=== PATIENT | female | born 1990 | race Caucasian/White ===

== ENCOUNTER 2016-04-16 17:51 | Emergency (ER) | payer OTHER, SELFPAY ==
[~2016-04-16 17:51] MED LIST: ACET50TA PO; ANUS2.5C2 TOP; DOCU10CA PO; IBUP60TA PO; MOM30SS PO
[2016-04-16] MEDS ORDERED: IBUPROFEN 600 MG TAB As Ordered ONE (18:24)
[2016-04-16] MEDS ORDERED: ANEXSIA, NORCO 7.5MG/325MG TABLET(HYDROCODONE/APAP) As Ordered ONE (18:24)
--- NOTE | 2016-04-16 18:36 | EDDOCDS ---
Nurse's Notes [facility] Name: Mahin Zuluaga Age: 25 yrs Sex: Female : 1990 Arrival Date: 04/16/2016 Time: 17:51 Bed I8 / 16 Private MD: [facility] - Adults Diagnosis: Other chest pain-chest wall pain Presentation: 04/16 17:55 Presenting complaint: Patient states: L flank pain since last night, worse with moving rs3 left arm, deep breathing. has not taken any meds. No known injury. picks up her 2 year old son constantly on left side. Acute neurological deficits are not present. Mechanism of Injury: No Mechanism of Injury. Adult Sepsis Screening: The patient does not have new or worsening altered mentation. Patient's respiratory rate is less than 22. Systolic blood pressure is greater than 100. Patient has a qSOFA score of 0- Negative Sepsis Screen. Suicide/Homicide risk assessment- the patient denies having any suicidal and/or homicidal ideations and does not present with any other emotional, behavioral or mental health complaints. 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 Transition of care: patient was not received from another setting of care. 17:55 Acuity: RADHA Level 4 rs3 17:55 Method Of Arrival: Walkin/Carried/Asstd rs3 Triage Assessment: 17:58 General: Appears in no apparent distress. Pain: Location: left lateral posterior chest. rs3 HIV screening NA for this visit Offered previously. Musculoskeletal: Reports Pain is 8 out of 10 on a pain scale. 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 none - PMHx: none; - PSHx: oral surgery; Cholecystectomy; - Social history: Smoking status: Patient uses tobacco products, heavy tobacco smoker. No barriers to communication noted, The patient speaks fluent Lithuanian. - Family history: Not pertinent. - : The pt / caregiver states he / she is not on anticoagulants. Home medication list is obtained from the patient. - Exposure Risk Screening:: None identified. Screenin:31 Screening information is obtained from the patient. Fall risk: No risks identified. ttb Assistance ADL's: requires no assistance with activities of daily living. Abuse/DV Screen: The patient / caregiver reports he/she is: not in a situation that causes fear, pain or injury. Nutritional screening: No deficits noted. Advance Directives: Currently, there is no health care proxy. home support is adequate. Assessment: 18:31 General: Appears in no apparent distress, uncomfortable, well nourished, well groomed, ttb Behavior is appropriate for age, cooperative, pleasant. Pain: Location: left ribs. Neurological: Level of Consciousness is awake, alert. Cardiovascular: Chest pain is denied. Respiratory: No deficits noted. Airway is patent Respiratory effort is even, unlabored. Respiratory: Denies cough, shortness of breath. GI: Denies nausea, vomiting, pain. Derm: Skin is normal. Musculoskeletal: Range of motion intact in all extremities. Injury Description: No known injury. Vital Signs: 17:53 BP 139 / 73; Pulse 92; Resp 18; Temp 98.2(O); Pulse Ox 100% on R/A; Weight 77.11 kg; [facility] Height 5 ft. 3 in. (160.02 cm); Pain 8/10; 17:53 Body Mass Index 30.11 (77.11 kg, 160.02 cm) [facility] Vitals: 17:53 Log In Time: April 16, 2016 at 17:51. [facility] ED Course: 17:52 Patient visited by Irving Brantley. [facility] 17:52 [facility] is Private Physician. [facility] 17:52 Patient moved to Waiting [facility] 17:53 Patient moved to Pre RCE dem1 17:58 Triage Initiated rs3 18:08 Patient moved to I8 / 16 [facility] 18:09 Jaime Foster MD is Attending Physician. ml 18:09 Patient visited by Jaime Foster MD. ml 18:20 [facility] is Referral Physician. ml 18:31 The patient / caregiver is instructed regarding the plan of care and ED course. ttb Accompanied by Friend, Patient has correct armband on for positive identification. 18:31 No IV's were initiated during this patient's visit. No procedures done that require ttb assistance. Administered Medications: 18:25 Drug: Ibuprofen 600 mg [ibuprofen 600 mg tablet (1 tabs)] Route: PO; ttb 18:25 Drug: HYDROcodone-acetaminophen 1 tabs [hydrocodone 5 mg-acetaminophen 325 mg tablet (1 ttb tabs)] Route: PO; 18:35 Follow up: Response: Confirmed pt not driving. ttb Order Results: There are currently no results for this order. Outcome: 18:20 Discharge ordered by Provider. 18:31 Discharge Assessment: Patient awake, alert and oriented x 3. No cognitive and/or ttb functional deficits noted. Patient verbalized understanding of disposition instructions. Patient awake and alert. patient administered narcotics - yes. Pt provided with safe discharge. The following High Risk Discharge criteria are identified: None. Discharged to home ambulatory, with friend. Condition: good Condition: stable Condition: improved. Discharge instructions given to patient, friend, Instructed on discharge instructions, follow up and referral plans. medication usage, no driving heavy equipment, Rest, Ice, Compression and Elevation. no drinking with medication, Demonstrated understanding of instructions, medications, no d/d with narcs, RICE Pt was receptive of discharge instructions/ teaching. Prescriptions given X 2, Work note provided to patient. No special radiology studies were completed. Property :Personal belongings accompany Pt. 18:35 Patient left the ED. ttb Signatures: Jaime Foster MD MD ml Kim-Ashcraft, Connie,RN RN ck1 Ana Laura ClemensRN RN rs3 Irving Brantley [facility] Yenny Tang RN RN ttb [facility]
--- NOTE | 2016-04-16 18:36 | EDDOCDS ---
Physician Documentation [facility] Name: Mahin Zuluaga Age: 25 yrs Sex: Female : 1990 Arrival Date: 04/16/2016 Time: 17:51 Bed I8 / 16 Private MD: [facility] - Adults Disposition: 04/16/16 18:20 Discharged to Home/Self Care. Impression: Other chest pain - chest wall pain. - Condition is Stable. - Discharge Instructions: Nonspecific Chest Pain, Chest Wall Pain. - Prescriptions for Ibuprofen 600 mg Oral Tablet - take 1 tablet by ORAL route every 8 hours As needed take with food; 20 tablet. [place] 5- 325 mg Oral Tablet - take 1 tablet by ORAL route every 6 hours As needed MDD: 4 tabs; 12 tablet. - Work Release Form - 3 day, Medication Reconciliation, Local Pharmacy Hours form. - Follow up: [facility] - Adults; When: Call to arrange an appointment. - Problem is new. - Symptoms are unchanged. - Notes: return if worsening symptoms Historical: - Allergies: no known allergies; - Home Meds: 1. none - PMHx: none; - PSHx: oral surgery; Cholecystectomy; - Social history: Smoking status: Patient uses tobacco products, heavy tobacco smoker. No barriers to communication noted, The patient speaks fluent Turkish. - Family history: Not pertinent. - : The pt / caregiver states he / she is not on anticoagulants. Home medication list is obtained from the patient. - Exposure Risk Screening:: None identified. 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 3 in. (160.02 cm); Pain 8/10; 17:53 Body Mass Index 30.11 (77.11 kg, 160.02 cm) dem1 MDM: 18:20 Ibuprofen 600 mg PO once ordered. ml 18:20 HYDROcodone-acetaminophen 5 mg-325 mg 1 tabs PO once ordered. ml Administered Medications: 18:25 Drug: Ibuprofen 600 mg [ibuprofen 600 mg tablet (1 tabs)] Route: PO; ttb 18:25 Drug: HYDROcodone-acetaminophen 1 tabs [hydrocodone 5 mg-acetaminophen 325 mg tablet (1 ttb tabs)] Route: PO; 18:35 Follow up: Response: Confirmed pt not driving. ttb Signatures: Jaime Foster MD MD ml Soosairaj, Rosemary, RN RN rs3 Yenny Tang RN RN ttb MTDD
--- NOTE | 2016-04-18 19:36 | EDDOCDS ---
Physician Documentation [facility] Name: Mahin Zuluaga Age: 25 yrs Sex: Female : 1990 Arrival Date: 04/16/2016 Time: 17:51 Bed I8 / 16 Private MD: [facility] - Adults Disposition: 04/16/16 18:20 Discharged to Home/Self Care. Impression: Other chest pain - chest wall pain. - Condition is Stable. - Discharge Instructions: Nonspecific Chest Pain, Chest Wall Pain. - Prescriptions for Ibuprofen 600 mg Oral Tablet - take 1 tablet by ORAL route every 8 hours As needed take with food; 20 tablet. [place] 5- 325 mg Oral Tablet - take 1 tablet by ORAL route every 6 hours As needed MDD: 4 tabs; 12 tablet. - Work Release Form - 3 day, Medication Reconciliation, Local Pharmacy Hours form. - Follow up: [facility] - Adults; When: Call to arrange an appointment. - Problem is new. - Symptoms are unchanged. - Notes: return if worsening symptoms Historical: - Allergies: no known allergies; - Home Meds: 1. none - PMHx: none; - PSHx: oral surgery; Cholecystectomy; - Social history: Smoking status: Patient uses tobacco products, heavy tobacco smoker. No barriers to communication noted, The patient speaks fluent Greenlandic. - Family history: Not pertinent. - : The pt / caregiver states he / she is not on anticoagulants. Home medication list is obtained from the patient. - Exposure Risk Screening:: None identified. 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 3 in. (160.02 cm); Pain 8/10; 17:53 Body Mass Index 30.11 (77.11 kg, 160.02 cm) dem1 MDM: 18:20 Ibuprofen 600 mg PO once ordered. ml 18:20 HYDROcodone-acetaminophen 5 mg-325 mg 1 tabs PO once ordered. ml 18:38 Financial registration complete. [email or web address] 21:27 T-Sheet-- Draft Copy was scanned into Tapulous and attached to record. klr Administered Medications: 18:25 Drug: Ibuprofen 600 mg [ibuprofen 600 mg tablet (1 tabs)] Route: PO; ttb 18:25 Drug: HYDROcodone-acetaminophen 1 tabs [hydrocodone 5 mg-acetaminophen 325 mg tablet (1 ttb tabs)] Route: PO; 18:35 Follow up: Response: Confirmed pt not driving. ttb Signatures: Jaime Foster MD MD ml Soosairaj, Rosemary, RN RN rs3 Yenny Tang RN RN ttb Yolanda Tierney, Reg Reg ks16 Zoey Sanders kljose The chart was reviewed and I authenticate all verbal orders and agree with the evaluation and treatment provided.Attachments: 21:27 T-Sheet-- Draft Copy klr Chart Complete MTDD
--- NOTE | 2016-04-18 19:36 | EDDOCDS ---
Physician Documentation [facility] Name: Mahin Zuluaga Age: 25 yrs Sex: Female : 1990 Arrival Date: 04/16/2016 Time: 17:51 Bed I8 / 16 Private MD: [facility] - Adults Disposition: 04/16/16 18:20 Discharged to Home/Self Care. Impression: Other chest pain - chest wall pain. - Condition is Stable. - Discharge Instructions: Nonspecific Chest Pain, Chest Wall Pain. - Prescriptions for Ibuprofen 600 mg Oral Tablet - take 1 tablet by ORAL route every 8 hours As needed take with food; 20 tablet. [place] 5- 325 mg Oral Tablet - take 1 tablet by ORAL route every 6 hours As needed MDD: 4 tabs; 12 tablet. - Work Release Form - 3 day, Medication Reconciliation, Local Pharmacy Hours form. - Follow up: [facility] - Adults; When: Call to arrange an appointment. - Problem is new. - Symptoms are unchanged. - Notes: return if worsening symptoms Historical: - Allergies: no known allergies; - Home Meds: 1. none - PMHx: none; - PSHx: oral surgery; Cholecystectomy; - Social history: Smoking status: Patient uses tobacco products, heavy tobacco smoker. No barriers to communication noted, The patient speaks fluent Bengali. - Family history: Not pertinent. - : The pt / caregiver states he / she is not on anticoagulants. Home medication list is obtained from the patient. - Exposure Risk Screening:: None identified. 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 3 in. (160.02 cm); Pain 8/10; 17:53 Body Mass Index 30.11 (77.11 kg, 160.02 cm) dem1 MDM: 18:20 Ibuprofen 600 mg PO once ordered. ml 18:20 HYDROcodone-acetaminophen 5 mg-325 mg 1 tabs PO once ordered. ml 18:38 Financial registration complete. [email or web address] 21:27 T-Sheet-- Draft Copy was scanned into [id number] and attached to record. klr Administered Medications: 18:25 Drug: Ibuprofen 600 mg [ibuprofen 600 mg tablet (1 tabs)] Route: PO; ttb 18:25 Drug: HYDROcodone-acetaminophen 1 tabs [hydrocodone 5 mg-acetaminophen 325 mg tablet (1 ttb tabs)] Route: PO; 18:35 Follow up: Response: Confirmed pt not driving. ttb Signatures: Jaime Foster MD MD ml Soosairaj, Rosemary, RN RN rs3 Yenny Tang RN RN ttb Yolanda Tierney, Reg Reg ks16 Zoey Sanders kljose The chart was reviewed and I authenticate all verbal orders and agree with the evaluation and treatment provided.Attachments: 21:27 T-Sheet-- Draft Copy klr Chart Complete MTDD
--- NOTE | 2016-04-18 19:36 | EDDOCDS ---
Nurse's Notes [facility] Name: Mahin Zuluaga Age: 25 yrs Sex: Female : 1990 Arrival Date: 04/16/2016 Time: 17:51 Bed I8 / 16 Private MD: [facility] - Adults Diagnosis: Other chest pain-chest wall pain Presentation: 04/16 17:55 Presenting complaint: Patient states: L flank pain since last night, worse with moving rs3 left arm, deep breathing. has not taken any meds. No known injury. picks up her 2 year old son constantly on left side. Acute neurological deficits are not present. Mechanism of Injury: No Mechanism of Injury. Adult Sepsis Screening: The patient does not have new or worsening altered mentation. Patient's respiratory rate is less than 22. Systolic blood pressure is greater than 100. Patient has a qSOFA score of 0- Negative Sepsis Screen. Suicide/Homicide risk assessment- the patient denies having any suicidal and/or homicidal ideations and does not present with any other emotional, behavioral or mental health complaints. 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 Transition of care: patient was not received from another setting of care. 17:55 Acuity: RADHA Level 4 rs3 17:55 Method Of Arrival: Walkin/Carried/Asstd rs3 Triage Assessment: 17:58 General: Appears in no apparent distress. Pain: Location: left lateral posterior chest. rs3 HIV screening NA for this visit Offered previously. Musculoskeletal: Reports Pain is 8 out of 10 on a pain scale. 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 none - PMHx: none; - PSHx: oral surgery; Cholecystectomy; - Social history: Smoking status: Patient uses tobacco products, heavy tobacco smoker. No barriers to communication noted, The patient speaks fluent Irish. - Family history: Not pertinent. - : The pt / caregiver states he / she is not on anticoagulants. Home medication list is obtained from the patient. - Exposure Risk Screening:: None identified. Screenin:31 Screening information is obtained from the patient. Fall risk: No risks identified. ttb Assistance ADL's: requires no assistance with activities of daily living. Abuse/DV Screen: The patient / caregiver reports he/she is: not in a situation that causes fear, pain or injury. Nutritional screening: No deficits noted. Advance Directives: Currently, there is no health care proxy. home support is adequate. Assessment: 18:31 General: Appears in no apparent distress, uncomfortable, well nourished, well groomed, ttb Behavior is appropriate for age, cooperative, pleasant. Pain: Location: left ribs. Neurological: Level of Consciousness is awake, alert. Cardiovascular: Chest pain is denied. Respiratory: No deficits noted. Airway is patent Respiratory effort is even, unlabored. Respiratory: Denies cough, shortness of breath. GI: Denies nausea, vomiting, pain. Derm: Skin is normal. Musculoskeletal: Range of motion intact in all extremities. Injury Description: No known injury. Vital Signs: 17:53 BP 139 / 73; Pulse 92; Resp 18; Temp 98.2(O); Pulse Ox 100% on R/A; Weight 77.11 kg; [facility] Height 5 ft. 3 in. (160.02 cm); Pain 8/10; 17:53 Body Mass Index 30.11 (77.11 kg, 160.02 cm) [facility] Vitals: 17:53 Log In Time: April 16, 2016 at 17:51. [facility] ED Course: 17:52 Patient visited by Irving Brantley. [facility] 17:52 [facility] is Private Physician. [facility] 17:52 Patient moved to Waiting [facility] 17:53 Patient moved to Pre RCE [facility] 17:58 Triage Initiated rs3 18:08 Patient moved to I8 / 16 [facility] 18:09 Jaime Foster MD is Attending Physician. ml 18:09 Patient visited by Jaime Foster MD. 18:20 [facility] is Referral Physician. 18:31 The patient / caregiver is instructed regarding the plan of care and ED course. ttb Accompanied by Friend, Patient has correct armband on for positive identification. 18:31 No IV's were initiated during this patient's visit. No procedures done that require ttb assistance. 21:27 T-Sheet-- Draft Copy was scanned into Tattva and attached to record. klr Administered Medications: 18:25 Drug: Ibuprofen 600 mg [ibuprofen 600 mg tablet (1 tabs)] Route: PO; ttb 18:25 Drug: HYDROcodone-acetaminophen 1 tabs [hydrocodone 5 mg-acetaminophen 325 mg tablet (1 ttb tabs)] Route: PO; 18:35 Follow up: Response: Confirmed pt not driving. ttb Order Results: There are currently no results for this order. Outcome: 18:20 Discharge ordered by Provider. 18:31 Discharge Assessment: Patient awake, alert and oriented x 3. No cognitive and/or ttb functional deficits noted. Patient verbalized understanding of disposition instructions. Patient awake and alert. patient administered narcotics - yes. Pt provided with safe discharge. The following High Risk Discharge criteria are identified: None. Discharged to home ambulatory, with friend. Condition: good Condition: stable Condition: improved. Discharge instructions given to patient, friend, Instructed on discharge instructions, follow up and referral plans. medication usage, no driving heavy equipment, Rest, Ice, Compression and Elevation. no drinking with medication, Demonstrated understanding of instructions, medications, no d/d with narcs, RICE Pt was receptive of discharge instructions/ teaching. Prescriptions given X 2, Work note provided to patient. No special radiology studies were completed. Property :Personal belongings accompany Pt. 18:35 Patient left the ED. ttb Signatures: Jaime Foster MD MD Margie Powell,RN RN ck1 Ana Laura Clemens RN RN rs3 Irving Brantley Teresa, RN RN ttb Redder, Kathie klr Chart Complete MTDD
== END 2016-04-16 18:35 | disposition home or self-care (01) ==
LOC: M ED 17:51
DX: R07.89 Other chest pain (principal); F17.210 Nicotine dependence, cigarettes, uncomplicated

== ENCOUNTER 2016-07-09 13:17 | Emergency (ER) | payer OTHER ==
[~2016-07-09] VITALS: Ht 160 cm; Wt 77.1 kg
[2016-07-09] MEDS ORDERED: BACT800T5 PO (13:52)
[2016-07-09 13:59] VITALS: BP 121/80
== END 2016-07-09 14:16 | disposition home or self-care (01) ==
LOC: M ED 13:57
DX: R22.31 Localized swelling, mass and lump, right upper limb (principal); F41.9 Anxiety disorder, unspecified

== ENCOUNTER 2016-08-25 13:28 | Emergency (ER) | payer OTHER ==
[~2016-08-25] VITALS: Ht 162.6 cm; Wt 80.7 kg
[~2016-08-25 13:28] MED LIST changes: +BACT800T5 PO
[2016-08-25 13:29] VITALS: BP 137/84
[2016-08-25] MEDS ORDERED: NAPR500T PO (15:00)
--- NOTE | 2016-08-25 15:52 | REP ---
RIGHT WRIST, FOUR VIEWS: There is no evidence of an acute fracture, dislocation or intrinsic bone disease. IMPRESSION: No fracture or dislocation. Signed by Gregory Bardales MD 08/25/2016 05:15 P
[2017-01-05] MEDS ORDERED: ULTR50TA8 PO (12:09)
== END 2016-08-25 15:10 | disposition home or self-care (01) ==
LOC: M ED 14:21
DX: S60.211A Contusion of right wrist, initial encounter (principal); X58.XXXA Exposure to other specified factors, initial encounter; Y92.9 Unspecified place or not applicable; Y93.9 Activity, unspecified; Y99.0 Civilian activity done for income or pay

== ENCOUNTER → 2016-10-14 | Outpatient (CLI) | payer OTHER ==
[~2016-10-14] MED LIST changes: +NAPR500T PO; +ULTR50TA8 PO
[2016-10-14 13:24] LABS: BASO # 0.1 K/mm3 (0.0-0.2); BASO % 0.7 % (0.0-1.0); EOS # 0.2 K/mm3 (0.0-0.50); EOS % 1.1 % (0.0-3.0); LARGE UNSTAINED CELL # 0.2 K/mm3 (0.0-0.4); LARGE UNSTAINED CELL % 1.2 % (0.0-4.0); LYMPH # 2.4 K/mm3 (1.5-6.5); LYMPH % 14.8 % (24.0-44.0); MEAN CORPUSCULAR HEMOGLOBIN 29.9 pg (27.0-33.0); MEAN CORPUSCULAR HGB CONC 33.2 g/dl (32.0-36.5); MONO # 0.9 K/mm3 (0.0-0.8); MONO % 5.2 % (0.0-5.0); NEUTROPHILS # 12.5 K/mm3 (1.8-7.7); NEUTROPHILS % 76.9 % (36.0-66.0); PLATELET COUNT, AUTOMATED 309 k/mm3 (150-450); RED CELL DISTRIBUTION WIDTH 14.1 % (11.5-14.5); WHITE BLOOD COUNT 16.2 K/mm3 (4.0-10.0)
[2016-10-14 14:37] LABS: ALBUMIN 3.9 GM/DL (3.2-5.2); ALBUMIN/GLOBULIN RATIO 1.26 (1.00-1.93); ALKALINE PHOSPHATASE 93 U/L (45-117); ALT/SGPT 20 U/L (12-78); ANION GAP 7 MEQ/L (8-16); AST/SGOT 13 U/L (15-37); BILIRUBIN,TOTAL 0.3 MG/DL (0.2-1.0); BLOOD UREA NITROGEN 8 MG/DL (7-18); CALCIUM LEVEL 9.2 MG/DL (8.5-10.1); CARBON DIOXIDE LEVEL 26 MEQ/L (21-32); CHLORIDE LEVEL 107 MEQ/L (98-107); CREATININE FOR GFR 0.57 MG/DL (0.55-1.02); GLOMERULAR FILTRATION RATE > 60.0 (>60); GLUCOSE, FASTING 94 MG/DL (70-105); MAGNESIUM LEVEL 2.5 MG/DL (1.8-2.4); SODIUM LEVEL 140 MEQ/L (136-145)
== END ==
LOC: M LAB 12:48
PROVIDERS: ATTEND Nurse Practitioner Family
DX: F32.9 Major depressive disorder, single episode, unspecified (principal); E61.1 Iron deficiency; R20.2 Paresthesia of skin; R63.4 Abnormal weight loss

== ENCOUNTER → 2016-10-19 | Outpatient (REF) | payer OTHER ==
[2016-10-19 20:39] LABS: BASO % 0.2 % (0.0-1.0); EOS # 0.2 K/mm3 (0.0-0.50); EOS % 1.6 % (0.0-3.0); LARGE UNSTAINED CELL # 0.2 K/mm3 (0.0-0.4); LARGE UNSTAINED CELL % 2.2 % (0.0-4.0); LYMPH # 1.9 K/mm3 (1.5-6.5); LYMPH % 18.4 % (24.0-44.0); MEAN CORPUSCULAR HEMOGLOBIN 30.2 pg (27.0-33.0); MEAN CORPUSCULAR HGB CONC 33.3 g/dl (32.0-36.5); MEAN CORPUSCULAR VOLUME 90.6 fl (80.0-96.0); MONO # 0.7 K/mm3 (0.0-0.8); NEUTROPHILS # 6.7 K/mm3 (1.8-7.7); NEUTROPHILS % 70.6 % (36.0-66.0); PLATELET COUNT, AUTOMATED 269 k/mm3 (150-450); RED CELL DISTRIBUTION WIDTH 14.5 % (11.5-14.5); WHITE BLOOD COUNT 9.4 K/mm3 (4.0-10.0)
== END ==
LOC: M LAB REF 17:37
PROVIDERS: ATTEND Nurse Practitioner Family
DX: D72.829 Elevated white blood cell count, unspecified (principal)

== ENCOUNTER 2017-03-04 12:49 | Emergency (ER) | payer OTHER ==
[2017-03-04] MEDS: PERCOCET 5MG/325MG TAB PO (13:57)
== END 2017-03-04 14:14 | disposition home or self-care (01) ==
LOC: M ED 12:49
DX: K08.89 Other specified disorders of teeth and supporting structures (principal); F17.210 Nicotine dependence, cigarettes, uncomplicated
CPT/HCPCS: 99283

== ENCOUNTER → 2017-03-28 | Outpatient (REF) | payer OTHER, MEDICAID ==
[2017-03-28 19:21] LABS: BASO # 0.1 10^3/uL (0.0-0.2); BASO % 0.6 % (0.0-1.0); EOS # 0.2 10^3/uL (0.0-0.50); EOS % 2.1 % (0.0-3.0); HEMOGLOBIN 11.9 g/dl (12.0-16.0); IMMATURE GRANULOCYTE % 0.2 % (0-0); LYMPH # 2.2 10^3/uL (1.5-6.5); LYMPH % 26.3 % (24.0-44.0); MEAN CORPUSCULAR HEMOGLOBIN 29.4 pg (27.0-33.0); MEAN CORPUSCULAR HGB CONC 33.1 g/dl (32.0-36.5); MEAN CORPUSCULAR VOLUME 88.9 fl (80.0-96.0); MONO # 0.8 10^3/uL (0.0-0.8); NEUTROPHILS # 5.3 10^3/uL (1.8-7.7); NEUTROPHILS % 61.8 % (36.0-66.0); PLATELET COUNT, AUTOMATED 288 10^3/uL (150-450); RED BLOOD COUNT 4.05 10^6/uL (4.00-5.40); RED CELL DISTRIBUTION WIDTH 14.8 % (11.5-14.5); WHITE BLOOD COUNT 8.5 10^3/uL (4.0-10.0)
[2017-03-28 19:55] LABS: ALBUMIN 4.1 GM/DL (3.2-5.2); ALBUMIN/GLOBULIN RATIO 1.21 (1.00-1.93); ALKALINE PHOSPHATASE 103 U/L (45-117); ALT/SGPT 22 U/L (12-78); ANION GAP 8 MEQ/L (8-16); AST/SGOT 18 U/L (7-37); BILIRUBIN,TOTAL 0.3 MG/DL (0.2-1.0); BLOOD UREA NITROGEN 6 MG/DL (7-18); CALCIUM LEVEL 8.4 MG/DL (8.5-10.1); CARBON DIOXIDE LEVEL 22 MEQ/L (21-32); CHLORIDE LEVEL 108 MEQ/L (98-107); CREATININE FOR GFR 0.57 MG/DL (0.55-1.02); GLOMERULAR FILTRATION RATE > 60.0 (>60); GLUCOSE, FASTING 101 MG/DL (70-100); POTASSIUM SERUM 3.9 MEQ/L (3.5-5.1); SODIUM LEVEL 138 MEQ/L (136-145); TOTAL PROTEIN 7.5 GM/DL (6.4-8.2)
[2017-03-28 20:19] LABS: TOTAL 25(OH) VITAMIN D 11.9 NG/ML (30.0-100.0)
[2017-03-30 14:15] LABS: TISSUE TRANSGLUTAMINASE IgA <2 U/mL (0-3)
== END ==
LOC: M LAB REF 17:34
DX: R10.11 Right upper quadrant pain (principal)

== ENCOUNTER → 2017-03-29 | Outpatient (REF) | payer OTHER, MEDICAID ==
[2017-03-29 19:16] LABS: TOTAL 25(OH) VITAMIN D 13.4 NG/ML (30.0-100.0); VITAMIN B12 LEVEL 528 PG/ML
[2017-03-29 19:18] LABS: ERYTHROCYTE SEDIMENTATION RATE 12 mm/hr (0-20)
[2017-03-29 19:24] LABS: FOLATE 10.1 NG/ML
[2017-03-29 19:33] LABS: RHEUMATOID FACTOR QUANT < 10.0 IU/ML (0-15.0)
[2017-04-01 14:12] LABS: ANTINUCLEAR ANTIBODIES DIRECT Negative (Negative); COPPER PLASMA 111 ug/dL (72-166)
== END ==
LOC: M LABNEURO 14:34
DX: R51 Headache (principal)

== ENCOUNTER → 2017-04-17 | Outpatient (REF) | payer OTHER, MEDICAID ==
[2017-04-17 15:14] LABS: CHLAMYDIA DNA AMPLIFICATION NEGATIVE (NEGATIVE); GC DNA AMPLIFICATION NEGATIVE (NEGATIVE)
== END ==
LOC: M SFHCWAGY 12:01
DX: Z11.3 Encounter for screening for infections with a predominantly sexual mode of transmission (principal); R10.30 Lower abdominal pain, unspecified

== ENCOUNTER → 2017-04-18 | Outpatient (CLI) | payer OTHER | LOC: M WHC 12:47 | DX: N92.6 Irregular menstruation, unspecified (principal); R10.2 Pelvic and perineal pain | CPT/HCPCS: 76830 ==

== ENCOUNTER 2017-08-19 19:39 | Emergency (ER) | payer OTHER ==
[2017-08-19] MEDS ORDERED: NORCO 5/325MG TABLET (BULK FOR ED) PO (21:15)
[2017-08-19] MEDS: OXYCODONE/APAP 5MG/325MG(BULK FOR ED) 1 TABLET PO (21:22)
== END 2017-08-19 21:30 | disposition home or self-care (01) ==
LOC: M ED 19:39
DX: S63.501A Unspecified sprain of right wrist, initial encounter (principal); S60.221A Contusion of right hand, initial encounter; W19.XXXA Unspecified fall, initial encounter; Y92.099 Unspecified place in other non-institutional residence as the place of occurrence of the external cause; Y93.9 Activity, unspecified; Y99.9 Unspecified external cause status; F41.9 Anxiety disorder, unspecified; D58.0 Hereditary spherocytosis; Z72.0 Tobacco use
CPT/HCPCS: 73110

== ENCOUNTER → 2017-10-03 | Outpatient (CLI) | payer OTHER ==
[2017-10-03 10:11] LABS: HEMATOCRIT 36.3 % (36.0-47.0); HEMOGLOBIN 12.1 g/dl (12.0-15.5)
== END ==
LOC: M LAB 09:12
DX: Z01.812 Encounter for preprocedural laboratory examination (principal); D64.9 Anemia, unspecified
CPT/HCPCS: 85014

== ENCOUNTER 2018-03-20 11:38 | Emergency (ER) | payer OTHER ==
[~2018-03-20] VITALS: Ht 160 cm; Wt 81.3 kg
[~2018-03-20 11:38] MED LIST changes: -ACET50TA PO; +AMOX875T PO; +IBUP1TAB6 GT; +MAPA500T2 PO; +NAPR-50 PO; -NAPR500T PO; +NORCOTAB PO
[2018-03-20 12:30] LABS: BASO # 0.1 10^3/uL (0.0-0.2); BASO % 0.4 % (0.0-1.0); EOS # 0.1 10^3/uL (0.0-0.50); EOS % 1.2 % (0.0-3.0); HEMATOCRIT 36.4 % (36.0-47.0); HEMOGLOBIN 12.6 g/dl (12.0-15.5); LYMPH # 2.3 10^3/uL (1.5-6.5); LYMPH % 19.1 % (24.0-44.0); MEAN CORPUSCULAR HEMOGLOBIN 31.5 pg (27.0-33.0); MEAN CORPUSCULAR HGB CONC 34.6 g/dl (32.0-36.5); MONO # 1.1 10^3/uL (0.0-0.8); MONO % 8.9 % (0.0-5.0); NEUTROPHILS # 8.4 10^3/uL (1.8-7.7); NEUTROPHILS % 69.9 % (36.0-66.0); PLATELET COUNT, AUTOMATED 294 10^3/uL (150-450); WHITE BLOOD COUNT 11.9 10^3/uL (4.0-10.0)
[2018-03-20] MEDS ORDERED: NS 1,000 ML IV ONE (12:30)
[2018-03-20] MEDS ORDERED: MORPHINE 4 MG/ML 1ML VIAL/SYRINGE (J2270) IV ONE (12:30)
[2018-03-20] MEDS ORDERED: ONDANSETRON 4MG/2ML VIAL (J2405) IV ONE (12:30)
[2018-03-20 12:44] LABS: INR 0.92; PARTIAL THROMBOPLASTIN TIME 29.7 SECONDS (25.4-37.6); PROTHROMBIN TIME 12.5 SECONDS (12.1-14.4)
[2018-03-20 12:54] LABS: BLOOD UREA NITROGEN 7 MG/DL (7-18); CALCIUM LEVEL 8.6 MG/DL (8.5-10.1); CARBON DIOXIDE LEVEL 22 MEQ/L (21-32); CHLORIDE LEVEL 106 MEQ/L (98-107); CREATININE FOR GFR 0.53 MG/DL (0.55-1.30); GLOMERULAR FILTRATION RATE > 60.0 (>60); GLUCOSE, FASTING 111 MG/DL (70-100); HCG, SERUM QUANTITATIVE 23355 MIU/ML; POTASSIUM SERUM 3.9 MEQ/L (3.5-5.1); SODIUM LEVEL 137 MEQ/L (136-145)
--- NOTE | 2018-03-20 13:23 | REP ---
Obstetric sonography: History: Abdomen pain. Findings: Transabdominal scanning demonstrates a viable single intrauterine gestation in a free-floating lie. [place]-rump length of the embryonic pole is 9 mm. This corresponds with a 1-vkym-2-day gestational age estimate. heart rate is recorded at 131 beats per minute. No subchorionic hemorrhage is seen. There is a cyst in the maternal left ovary consistent with corpus luteum measuring 1.8 cm in greatest diameter. Impression: Viable single intrauterine gestation is 6 weeks 6 days by crown-rump length. TORRI by sonography November 07, 2018. No complication is identified. Electronically Signed by Wyatt Palencia MD 03/20/2018 01:15 P
[2018-03-20 14:56] LABS: AMORPHOUS SEDIMENT MODERATE (NEGATIVE); APPEARANCE, URINE TURBID (CLEAR); BACTERIA, URINE AUTO NEGATIVE (NEGATIVE); BILIRUBIN, URINE AUTO NEGATIVE (NEGATIVE); BLOOD, URINE BLOOD NEGATIVE (NEGATIVE); COLOR, URINE YELLOW (YELLOW); GLUCOSE, URINE (UA) AUTO NEGATIVE (NEGATIVE); KETONE, URINE AUTO NEGATIVE (NEGATIVE); LEUKOCYTE ESTERASE, URINE AUTO 3+ (NEGATIVE); MUCUS, URINE LARGE (NEGATIVE); NITRITE, URINE AUTO NEGATIVE (NEGATIVE); PROTEIN, URINE AUTO 1+ mg/dL (NEGATIVE); RBC, URINE AUTO 7 /HPF (0-3); SPECIFIC GRAVITY URINE AUTO 1.031 (1.002-1.035); SQUAMOUS EPITHELIAL CELL UR AU 13 /HPF (0-6); UROBILINOGEN, URINE AUTO 0.2 mg/dL (0.0-2.0); WBC, URINE AUTO 0 /HPF (0-3)
[2018-03-20] MEDS ORDERED: diphenhydrAMINE INJ 50MG/ML VIAL (J1200) IV ONE (15:15)
--- NOTE | 2018-03-20 15:36 | REP ---
Right lower quadrant sonography: History: Right lower quadrant pain times 1 day. Rule out appendicitis. Findings: Scanning is performed in the right lower quadrant of the abdomen and pelvis. The appendix is not directly visualized. Tenderness was elicited to scanning in the right lower quadrant. Peristalsing small bowel is seen. Cecum is visualized. No inflammatory changes or free fluid are seen. Impression: Tenderness to scanning was elicited in the right lower quadrant. The appendix is not directly visualized. No abscess, free fluid, adenopathy, or inflammatory changes are seen. Electronically Signed by Wyatt Palencia MD 03/20/2018 06:11 P
[2018-03-20] MEDS ORDERED: PERC5TAB12 PO (18:14)
[2018-03-20 18:28] VITALS: BP 107/53
--- NOTE | 2018-03-20 19:52 | REP ---
MRI PELVIS WITHOUT CONTRAST: 03/20/2018. Clinical history: Abdominal pain. Tenderness on ultrasound exam of the right lower quadrant with appendix not directly visualized. Patient 6 weeks 6 days by crown-rump length. Technique: Multiplanar T1, T2 and gradient echo images through the pelvis and lower abdomen with attention to the region of the appendix. No contrast given. Comparison: Pelvic and OB ultrasound this date. Findings: The appendix is best identified on the coronal sagittal and axial T2 sequences. Has a maximum diameter 5.6 mm. There is no inflammatory change or edema adjacent to it. There is no fluid adjacent to it nor mass. No evidence for abscess. Uterus is anteverted and has a gestational sac within the fundus. There is a 2 cm corpus luteum cyst in the left ovary. The right ovary is without mass and has just a few tiny follicles. There is no pelvic free fluid. There are no inflammatory changes in the small bowel loops, cecum, the sigmoid and distal left colon, rectum grossly intact as visible. Bladder grossly unremarkable on the portion visualized. Impression: 1. Appendix is well visualized with maximum diameter of only 5.5 mm and without periappendiceal edema, fluid collection or mass. No evidence of abscess or appendicitis by MR. No pelvic free fluid or adenopathy. 2. Gestational sac in the fundus of the uterus. 3. A 2 cm corpus luteum cyst in the left ovary. Right ovary unremarkable. Electronically Signed by aMtt Recio MD 03/20/2018 08:52 P
== END 2018-03-20 18:29 | disposition home or self-care (01) ==
LOC: M ED 11:38
DX: O26.891 Other specified pregnancy related conditions, first trimester (principal); R10.31 Right lower quadrant pain; Z3A.01 Less than 8 weeks gestation of pregnancy; O99.331 Smoking (tobacco) complicating pregnancy, first trimester; F17.210 Nicotine dependence, cigarettes, uncomplicated
CPT/HCPCS: 36415; 72195; 76857; 80048; 81001; 84702; 85025; 85610; 85730; 86850; 86900; 86901; 93976; 96361; 96374; 96375; 99284; J1200; J2270; J2405

== ENCOUNTER → 2018-03-27 | Outpatient (CLI) | payer OTHER ==
[~2018-03-27] MED LIST changes: +PERC5TAB12 PO
[2018-03-27 17:58] LABS: BASO # 0.1 10^3/uL (0.0-0.2); BASO % 0.3 % (0.0-1.0); EOS # 0.1 10^3/uL (0.0-0.50); EOS % 0.4 % (0.0-3.0); HEMATOCRIT 37.8 % (36.0-47.0); HEMOGLOBIN 12.8 g/dl (12.0-15.5); LYMPH # 1.6 10^3/uL (1.5-6.5); MEAN CORPUSCULAR HEMOGLOBIN 31.3 pg (27.0-33.0); MEAN CORPUSCULAR HGB CONC 33.9 g/dl (32.0-36.5); MEAN CORPUSCULAR VOLUME 92.4 fl (80.0-96.0); MONO % 5.8 % (0.0-5.0); NEUTROPHILS # 15.1 10^3/uL (1.8-7.7); NEUTROPHILS % 83.5 % (36.0-66.0); PLATELET COUNT, AUTOMATED 294 10^3/uL (150-450); RED BLOOD COUNT 4.09 10^6/uL (4.00-5.40)
[2018-03-27 18:07] LABS: FREE T4 0.95 NG/DL (0.76-1.46); THYROID STIMULATING HORMONE 0.405 uIU/ML (0.358-3.740)
[2018-03-27 19:50] LABS: CHLAMYDIA DNA AMPLIFICATION POSITIVE (NEGATIVE); GC DNA AMPLIFICATION NEGATIVE (NEGATIVE)
[2018-03-28 15:43] LABS: RUBELLA IgG QUALITATIVE IMMUNE (IMMUNE)
[2018-03-28 16:13] LABS: HIV 1&2 SCREEN CENTAUR NEGATIVE (NEGATIVE)
== END ==
LOC: M SMT 13:12
PROVIDERS: ATTEND Advanced Practice Midwife
DX: Z36.89 Encounter for other specified antenatal screening (principal)

== ENCOUNTER → 2018-04-17 | Outpatient (REF) | payer OTHER ==
[2018-04-17 21:45] LABS: CHLAMYDIA DNA AMPLIFICATION POSITIVE (NEGATIVE); GC DNA AMPLIFICATION NEGATIVE (NEGATIVE)
== END ==
LOC: M LAB REF 16:58
PROVIDERS: ATTEND Obstetrics & Gynecology
DX: Z34.81 Encounter for supervision of other normal pregnancy, first trimester (principal)

== ENCOUNTER 2018-05-12 09:42 | Emergency (ER) | payer OTHER ==
[~2018-05-12] VITALS: Ht 160 cm; Wt 84.1 kg
[2018-05-12 10:21] LABS: BASO % 0.4 % (0.0-1.0); EOS # 0.1 10^3/uL (0.0-0.50); EOS % 0.6 % (0.0-3.0); HEMATOCRIT 31.3 % (36.0-47.0); LYMPH # 1.9 10^3/uL (1.5-6.5); LYMPH % 16.5 % (24.0-44.0); MEAN CORPUSCULAR HEMOGLOBIN 32.5 pg (27.0-33.0); MEAN CORPUSCULAR HGB CONC 35.1 g/dl (32.0-36.5); MEAN CORPUSCULAR VOLUME 92.6 fl (80.0-96.0); MONO # 0.9 10^3/uL (0.0-0.8); MONO % 7.5 % (0.0-5.0); NEUTROPHILS # 8.5 10^3/uL (1.8-7.7); NEUTROPHILS % 74.3 % (36.0-66.0); PLATELET COUNT, AUTOMATED 243 10^3/uL (150-450); RED BLOOD COUNT 3.38 10^6/uL (4.00-5.40); WHITE BLOOD COUNT 11.4 10^3/uL (4.0-10.0)
[2018-05-12] MEDS ORDERED: PROMETHAZINE INJ 25 MG/ML VIAL (J2550) As Ordered ONE (10:38)
[2018-05-12] MEDS ORDERED: MORPHINE 2 MG/ML 1ML SYRINGE (J2270) As Ordered ONE (10:39)
[2018-05-12] MEDS ORDERED: MORPHINE 2 MG/ML 1ML SYRINGE (J2270) IV ONE (10:45)
[2018-05-12] MEDS ORDERED: PROMETHAZINE INJ 25 MG/ML VIAL (J2550) IV ONE (10:45)
[2018-05-12 11:21] LABS: ALBUMIN 3.1 GM/DL (3.2-5.2); ALT/SGPT 30 U/L (12-78); BILIRUBIN,DIRECT < 0.1 MG/DL (0.0-0.2); BILIRUBIN,TOTAL 0.2 MG/DL (0.2-1.0); BLOOD UREA NITROGEN 4 MG/DL (7-18); CALCIUM LEVEL 8.6 MG/DL (8.5-10.1); CARBON DIOXIDE LEVEL 21 MEQ/L (21-32); CHLORIDE LEVEL 106 MEQ/L (98-107); GLOMERULAR FILTRATION RATE > 60.0 (>60); GLUCOSE, FASTING 84 MG/DL (70-100); HCG, SERUM QUANTITATIVE 24671 MIU/ML; LIPASE 62 U/L (73-393); POTASSIUM SERUM 3.9 MEQ/L (3.5-5.1); SODIUM LEVEL 138 MEQ/L (136-145); TOTAL PROTEIN 6.3 GM/DL (6.4-8.2)
[2018-05-12 12:11] LABS: CHLAMYDIA DNA AMPLIFICATION NEGATIVE (NEGATIVE); GC DNA AMPLIFICATION NEGATIVE (NEGATIVE)
--- NOTE | 2018-05-12 13:09 | REP ---
Obstetric ultrasound for left abdominal pain: There is a single intrauterine gestation in a transverse lie with the head to the maternal right. There is motion and cardiac activity. The heart rate is 160 beats per minute. The placenta is anterior. There is no placenta previa or abruptio. The placenta is grade zero maturity. Subjectively the amniotic fluid is normal volume. The cervix measures 3.7 cm length. Evaluation of the maternal adnexa reveal a left ovarian cyst measuring 2.5 x 1.7, 1.9 cm, likely a corpus luteum. There is vascular flow in the left ovary with the Doppler resistive index of the parenchymal arteries measuring 0.51. The right ovary could not be visualized on transabdominal or transvaginal imaging. Chest dated gestational age by today's ultrasound is 14-week 6 days/TORRI 11/04/2018. Gestational age by the first ultrasound is 14 weeks 3 days/TORRI 11/07/2018. Gestational age by LMP is 14 weeks 3 days/TORRI 11/07/2018. weight is 103 grams/0 pounds, 3 ounces. This is the 49 percentile for 14 weeks 3 days. Some of the anatomic structures are visualized and are unremarkable including: Choroid plexus, stomach, cord insertion, three-vessel cord and bladder. The remainder of the anatomy could not be visualized because of early gestational age. Routine anatomical survey can be performed at 20 weeks gestational age. Impression: The right ovary could not be visualized on transabdominal or endovaginal imaging There is a left ovarian cyst, likely a corpus luteum. There is vascular flow in the left ovary. Electronically Signed by Gregory Murray MD 05/12/2018 01:01 P
[2018-05-12] MEDS ORDERED: DICL10TA PO (13:29)
[2018-05-12] MEDS ORDERED: ACE65ERTAB PO (13:30)
[2018-05-12 13:56] VITALS: BP 105/53
== END 2018-05-12 14:07 | disposition home or self-care (01) ==
LOC: M ED 09:42
DX: O99.89 Other specified diseases and conditions complicating pregnancy, childbirth and the puerperium (principal); N83.202 Unspecified ovarian cyst, left side; Z86.19 Personal history of other infectious and parasitic diseases; O99.512 Diseases of the respiratory system complicating pregnancy, second trimester; J45.909 Unspecified asthma, uncomplicated; O99.342 Other mental disorders complicating pregnancy, second trimester; F41.9 Anxiety disorder, unspecified; F33.9 Major depressive disorder, recurrent, unspecified; O99.332 Smoking (tobacco) complicating pregnancy, second trimester; F17.200 Nicotine dependence, unspecified, uncomplicated; O99.612 Diseases of the digestive system complicating pregnancy, second trimester; K58.9 Irritable bowel syndrome, unspecified; Z3A.14 14 weeks gestation of pregnancy; Z90.49 Acquired absence of other specified parts of digestive tract
CPT/HCPCS: 76811; 76817; 80048; 80076; 81001; 83690; 84702; 85025; 87086; 87210; 87491; 87591; 93976; 96374; 96375; 99284; J2270

== ENCOUNTER → 2018-06-12 | Outpatient (CLI) | payer OTHER ==
[~2018-06-12] MED LIST changes: +ACE65ERTAB PO; +DICL10TA PO; +HYDR-3715 PO; +IBUP600T42 PO; -IBUP60TA PO; -NAPR-50 PO; +NAPR-837 PO; -NORCOTAB PO
--- NOTE | 2018-06-13 04:25 | REP ---
Clinical: Anatomical evaluation. Comparison: 05/12/2018 . Findings: Examination demonstrates a single live intrauterine in transverse (head to maternal left) presentation. motion is identified by technologist. Placenta is noted anterior and grade grade zero without evidence for placenta previa or abruption. Amniotic fluid volume is normal. Cervix measures 4.3 cm in length and appears closed. No evidence for nuchal cord. Gestational age by LMP 18 weeks 6 days with TORRI 11/07/2018 . Gestational age by current measurements 19 weeks 4 days with TORRI 11/02/2018 . FHR equals 150 beats per minute. BPD 4.4 cm 19 weeks 2 days HC 16.9 cm 19 weeks 4 days AC 14.4 cm 19 weeks 5 days FL 3.1 cm 19 weeks 4 days HL 2.9 cm 19 weeks 3 days HC/AC ratio 1.18 Estimated weight 304 grams ( 70th percentile). Anatomical assessment demonstrates normal structures including cranium, choroid plexus, cavum, cerebellum/posterior fossa, facial features, lungs, four-chamber heart/ventricular outflow tracts, diaphragm, stomach, cord insertion/three-vessel cord, kidneys/bladder, and extremities. Impression: 1. Single live intrauterine in transverse lie demonstrating appropriate interval growth. 2. Limited evaluation of the spine. Remainder of the anatomical assessment is complete and normal. Electronically Signed by Rogelio Haley MD 06/13/2018 04:17 A
== END ==
LOC: M RAD 14:09
PROVIDERS: ATTEND Obstetrics & Gynecology
DX: Z34.82 Encounter for supervision of other normal pregnancy, second trimester (principal)

== ENCOUNTER 2018-07-10 11:34 | Emergency (ER) | payer OTHER ==
[~2018-07-10] VITALS: Ht 160 cm; Wt 83.2 kg
[2018-07-10 11:34] VITALS: BP 137/78
== END 2018-07-10 12:23 | disposition left against medical advice (07) ==
LOC: M ED 11:34
DX: Z53.21 Procedure and treatment not carried out due to patient leaving prior to being seen by health care provider (principal)

== ENCOUNTER → 2018-09-12 | Outpatient (CLI) | payer OTHER ==
--- NOTE | 2018-09-12 20:29 | REP ---
Clinical: Anatomical evaluation. Comparison: 07/23/2018 the . Findings: Examination demonstrates a single live intrauterine in cephalic presentation. motion is identified by technologist. Placenta is noted anterior and grade one without evidence for placenta previa or abruption. Amniotic fluid volume is normal. Cervix measures 2.9 cm in length and appears closed. Nuchal cord cannot be excluded. Gestational age by LMP 32 weeks 0 days with TORRI 11/07/2018 . Gestational age by current measurements 32 weeks 2-day with TORRI it is 11/05/2018 . FHR equals 135 beats per minute. Estimated weight 2022 grams ( 57 percentile). Anatomical assessment demonstrates normal structures including cranium, choroid plexus, cavum, facial features, lungs, four-chamber heart/ventricular outflow tracts, diaphragm, stomach, cord insertion/three-vessel cord, kidneys/bladder. Impression: Single live intrauterine in cephalic presentation demonstrating appropriate interval growth. Limited evaluation of the spine again noted. Electronically Signed by Rogelio Haley MD 09/12/2018 08:21 P
== END ==
LOC: M RAD 15:46
PROVIDERS: ATTEND Advanced Practice Midwife
DX: Z34.82 Encounter for supervision of other normal pregnancy, second trimester (principal); Z36.89 Encounter for other specified antenatal screening; Z3A.32 32 weeks gestation of pregnancy

== ENCOUNTER → 2018-09-19 | Outpatient (CLI) | payer OTHER ==
[2018-09-19 13:05] LABS: HEMOGLOBIN 8.5 g/dl (12.0-15.5); MEAN CORPUSCULAR HEMOGLOBIN 30.7 pg (27.0-33.0); MEAN CORPUSCULAR HGB CONC 32.7 g/dl (32.0-36.5); MEAN CORPUSCULAR VOLUME 93.9 fl (80.0-96.0); PLATELET COUNT, AUTOMATED 359 10^3/uL (150-450); RED BLOOD COUNT 2.77 10^6/uL (4.00-5.40); WHITE BLOOD COUNT 14.4 10^3/uL (4.0-10.0)
== END ==
LOC: M LAB 10:59
PROVIDERS: ATTEND Advanced Practice Midwife
DX: O99.89 Other specified diseases and conditions complicating pregnancy, childbirth and the puerperium (principal); Z3A.00 Weeks of gestation of pregnancy not specified

== ENCOUNTER → 2018-10-10 | Outpatient (REF) | payer OTHER ==
[~2018-10-10] MED LIST changes: +ACET-683 PO; +PRENTAB9 PO; +TUMS750C5 PO
== END ==
LOC: M LAB REF 17:23
PROVIDERS: ATTEND Advanced Practice Midwife
DX: Z34.83 Encounter for supervision of other normal pregnancy, third trimester (principal)

== ENCOUNTER 2018-10-11 21:06 | Outpatient (CLI) | payer OTHER ==
[~2018-10-11] VITALS: Ht 167.6 cm; Wt 83.2 kg
[~2018-10-11 21:06] MED LIST changes: -ACET-683 PO; -PRENTAB9 PO; -TUMS750C5 PO
[2018-10-11 21:33] VITALS: BP 108/66
[2018-10-11] MEDS ORDERED: ONDANSETRON 4 MG TAB (S0181) PO ONE (22:30)
[2018-10-11] MEDS ORDERED: TUMS750C5 PO (23:04)
[2018-10-11] MEDS ORDERED: ACET-683 PO (23:04)
[2018-10-11] MEDS ORDERED: PRENTAB9 PO (23:04)
== END 2018-10-11 22:43 | disposition home or self-care (01) ==
LOC: M LDO 21:06
PROVIDERS: ATTEND Obstetrics & Gynecology
DX: O26.893 Other specified pregnancy related conditions, third trimester (principal); R10.2 Pelvic and perineal pain; O99.343 Other mental disorders complicating pregnancy, third trimester; F41.9 Anxiety disorder, unspecified; F32.9 Major depressive disorder, single episode, unspecified; O99.333 Smoking (tobacco) complicating pregnancy, third trimester; Z3A.36 36 weeks gestation of pregnancy

== ENCOUNTER 2018-10-29 08:45 | Outpatient (CLI) | payer OTHER ==
[~2018-10-29] VITALS: Ht 160 cm; Wt 86.2 kg
[~2018-10-29 08:45] MED LIST changes: +ACET-683 PO; +PRENTAB9 PO; +TUMS750C5 PO
[2018-10-29 09:06] VITALS: BP 114/58
[2018-10-29] MEDS ORDERED: LR 1,000 ML IV ONE (10:15)
[2018-10-29 10:26] VITALS: BP 107/56
[2018-10-29 10:51] LABS: APPEARANCE, URINE HAZY (CLEAR); BACTERIA, URINE AUTO 1+ (NEGATIVE); BILIRUBIN, URINE AUTO NEGATIVE (NEGATIVE); BLOOD, URINE BLOOD NEGATIVE (NEGATIVE); COLOR, URINE YELLOW (YELLOW); GLUCOSE, URINE (UA) AUTO NEGATIVE (NEGATIVE); KETONE, URINE AUTO NEGATIVE (NEGATIVE); LEUKOCYTE ESTERASE, URINE AUTO 2+ (NEGATIVE); MUCUS, URINE SMALL (NEGATIVE); NITRITE, URINE AUTO NEGATIVE (NEGATIVE); PROTEIN, URINE AUTO NEGATIVE (NEGATIVE); RBC, URINE AUTO 1 /HPF (0-3); SQUAMOUS EPITHELIAL CELL UR AU 1 /HPF (0-6); UROBILINOGEN, URINE AUTO 0.2 mg/dL (0.0-2.0); WBC, URINE AUTO 2 /HPF (0-3)
[2018-10-29 10:53] LABS: BASO % 0.3 % (0.0-1.0); EOS # 0.1 10^3/uL (0.0-0.50); EOS % 0.7 % (0.0-3.0); HEMATOCRIT 25.8 % (36.0-47.0); HEMOGLOBIN 8.4 g/dl (12.0-15.5); LYMPH # 2.5 10^3/uL (1.5-6.5); LYMPH % 16.3 % (24.0-44.0); MEAN CORPUSCULAR HEMOGLOBIN 28.9 pg (27.0-33.0); MEAN CORPUSCULAR HGB CONC 32.6 g/dl (32.0-36.5); MEAN CORPUSCULAR VOLUME 88.7 fl (80.0-96.0); MONO # 1.1 10^3/uL (0.0-0.8); MONO % 7.2 % (0.0-5.0); NEUTROPHILS # 11.2 10^3/uL (1.8-7.7); NEUTROPHILS % 74.3 % (36.0-66.0); PLATELET COUNT, AUTOMATED 364 10^3/uL (150-450); RED BLOOD COUNT 2.91 10^6/uL (4.00-5.40); WHITE BLOOD COUNT 15.1 10^3/uL (4.0-10.0)
[2018-10-29 11:19] LABS: ALBUMIN 2.4 GM/DL (3.2-5.2); BLOOD UREA NITROGEN 3 MG/DL (7-18); CALCIUM LEVEL 8.5 MG/DL (8.5-10.1); CARBON DIOXIDE LEVEL 23 MEQ/L (21-32); CHLORIDE LEVEL 108 MEQ/L (98-107); CREATININE FOR GFR 0.44 MG/DL (0.55-1.30); GLOMERULAR FILTRATION RATE > 60.0 (>60); GLUCOSE, FASTING 84 MG/DL (70-100); PHOSPHORUS LEVEL 2.9 MG/DL (2.5-4.9); POTASSIUM SERUM 3.8 MEQ/L (3.5-5.1); SODIUM LEVEL 140 MEQ/L (136-145)
[2018-10-29 11:20] VITALS: BP 104/57
--- NOTE | 2018-10-29 11:52 | HPE ---
DATE OF ADMISSION: 10/29/2018 CHIEF COMPLAINT: Back pain. HISTORY OF PRESENT ILLNESS: Mahin is a 27-year-old G2, para 1-0-0-1 at 38 weeks 5 days estimated gestational age by first trimester ultrasound of 03/20/2018. Estimated date of confinement is 11/07/2018. She presented to labor and delivery complaining of low back pain that began at 10:00 p.m. last night. She rates pain as an 8-10 out of 10. She states that it radiates down into her belly and into her vagina. She is also complaining of pressure when urinating. She denies any uterine contractions but states that this feels similar to labor when she delivered her first son. She denies any leakage of fluids, vaginal bleeding, vaginal discharge. She states that she is feeling her baby move. Her last intercourse was in January. LABS: Blood type B+, antibody negative, rubella immune, VDRL nonreactive, hepatitis B surface antigen negative, hepatitis C nonreactive, diabetes screen was 140, she did not show for her 3-hour GTT, HIV negative, GBS negative. Gonorrhea was positive in early and treated successfully with a negative recheck of 05/12/2018. Chlamydia was negative. Obstetrical ultrasound showed a single intrauterine (IUP) with an anterior placenta, vertex presentation. OBSTETRICAL HISTORY: 1. In 2013 she delivered a male infant at 39 and 5 via normal spontaneous vaginal delivery that weight 7 pounds 3 ounces without complications. PAST MEDICAL HISTORY: Asthma. Anxiety. Anemia with hereditary spherocytosis. Depression. MEDICATIONS: PAST SURGICAL HISTORY: [place] teeth extraction. Right elbow surgery. Laparoscopic cholecystectomy. ALLERGIES: None. SOCIAL HISTORY: The patient is single. Smokes one-half pack of cigarettes per day. Denies alcohol or drug use. PHYSICAL EXAMINATION: VITALS: Temperature 98.0, pulse 104 and regular, respiratory 16 and regular, blood pressure 114/58. ABDOMEN: Gravid, no contractions palpated. BACK: Costovertebral angle (CVA) tenderness on the left side. STERILE VAGINAL EXAM: 2-3 cm/50% effacement/-3 station MONITOR: 135 beats per minute. Moderate variability, excels, no decels, category 1 tracing TOCO: Irregular contractions. ASSESSMENT/PLAN: This is an IUP at 38 weeks 5 days estimated gestational age presenting with back pain. Rule out kidney stones, not currently in active labor. Will obtain labs, urinalysis, urine culture, as well as renal ultrasound. Admit for observation. GBS is negative.
[2018-10-29 12:54] VITALS: BP 107/56
--- NOTE | 2018-10-29 14:26 | IPNPDOC ---
Text Note Date of Service The patient was seen on 10/29/18. NOTE S: Patient still c/o back pain. No contractions, discharge, or leakage of fluid. Was able to eat full meal. O: Has remained afebrile with stable vital signs Resting comfortably on exam SVE unchanged (2-3 cm/50%/posterior and high) FHR: 135 mod variability, accels, no decels, Cat I tracing. TOCO: no contractions Labs: WBC 15.1, Hgb 8.4, Hct 25.8, Plt 364 Urine: 2+ leuk est, 1+ bacteria Chemistry: unremarkable UC pending A: at 38 and 5 EGA, not in active labor, with back pain P: Per consultation with Dr. Dudley, will give one dose IV Rocephin for suspected UTI with outpatient Keflex. Treating discomfort right now, then dc home as patient not in active labor, was able to eat a full meal, and was resting comfortably upon examination VS,Fishbone, I+O VS, Fishbone, I+O Laboratory Tests 10/29/18 10:27 Red Blood Count 2.91 L, Mean Corpuscular Volume 88.7, Mean Corpuscular Hemoglobin 28.9, Mean Corpuscular Hemoglobin Concent 32.6, Red Cell Distribution Width 14.6 H, Neutrophils (%) (Auto) 74.3 H, Lymphocytes (%) (Auto) 16.3 L, Monocytes (%) (Auto) 7.2 H, Eosinophils (%) (Auto) 0.7, Basophils (%) (Auto) 0.3, Neutrophils # (Auto) 11.2 H, Lymphocytes # (Auto) 2.5, Monocytes # (Auto) 1.1 H, Eosinophils # (Auto) 0.1, Basophils # (Auto) 0.0, Anion Gap 9 Vital Signs Date Time Temp Pulse Resp B/P (MAP) Pulse Ox O2 Delivery O2 Flow Rate FiO2 10/29/18 11:20 97.7 93 16 104/57 (73) GME ATTESTATION GME ATTESTATION My faculty preceptor for this patient encounter was physically present during the encounter and was fully available. All aspects of the patient interview, examination, medical decision making process, and medical care plan development were reviewed and approved by the faculty preceptor. The faculty preceptor is aware and concurs with the plan as stated in the body of this note and will attest to such by his/her cosignature. JESENIA ARZATE DO Oct 29, 2018 14:26
[2018-10-29 14:29] VITALS: BP 97/53
[2018-10-29] MEDS ORDERED: PERCOCET 5MG/325MG TAB PO ONE (14:30)
[2018-10-29 14:32] VITALS: BP 97/53
[2018-10-29] MEDS ORDERED: cefTRIAXone SOD 1 GM in D5W MINI-BAG PLUS 50 ML IV ONE (15:00)
--- NOTE | 2018-10-30 12:08 | REP ---
Renal ultrasound for back pain, the patient is 38 weeks gestation: The kidneys are normal size. Right kidney measures 12.9 x 6.6 x 6.4 cm. The left kidney measures 11.5 x 6.6 x 7.4 cm. Renal cortical echogenicity is normal bilaterally. There is no hydronephrosis or hydroureter on the right on the left. There are no renal calculi. There are no solid or cystic renal masses. Bladder: The patient voided just prior to the study, the bladder is empty and cannot be evaluated. Impression: There is no hydronephrosis. Otherwise, negative renal ultrasound. The bladder is empty and cannot be evaluated. Electronically Signed by Gregory Murray MD 10/29/2018 11:22 A
== END 2018-10-29 15:32 | disposition home or self-care (01) ==
LOC: M LDO 08:45
PROVIDERS: ATTEND Advanced Practice Midwife
DX: O26.893 Other specified pregnancy related conditions, third trimester (principal); M54.5 Low back pain; O47.1 False labor at or after 37 completed weeks of gestation; Z3A.38 38 weeks gestation of pregnancy
CPT/HCPCS: 59025; 76775; 80069; 81001; 85025; 87088; 96360; 96361; 96374; J0696

== ENCOUNTER 2018-11-09 12:08 | Inpatient (IN) | payer OTHER ==
[2018-11-09] VITALS (9 sets, daily range): BP systolic 115–144; BP diastolic 60–99
[~2018-11-09] VITALS: Ht 160 cm; Wt 84.4 kg
[2018-11-09] MEDS ORDERED: LACTATED RINGER'S 1000 ML IV STA (12:24)
[2018-11-09] MEDS ORDERED: LR 1,000 ML IV SCH (12:24)
[2018-11-09] MEDS ORDERED: OXYTOCIN 30 UNITS IN 0.9% NaCl 500ML IV BAG (J2590) As Ordered ONE (12:39)
[2018-11-09] MEDS ORDERED: MOM 30ML SUSPENSION UDC PO PRN (13:30)
[2018-11-09] MEDS ORDERED: ACETAMINOPHEN TAB 650MG DOSE (2X325MG) PO PRN (13:30)
[2018-11-09] MEDS ORDERED: DOCUSATE SODIUM 100 MG CAP PO PRN (13:30)
[2018-11-09] MEDS ORDERED: DIBUCAINE 1% OINTMENT 30GM TOP PRN (13:30)
[2018-11-09] MEDS ORDERED: ANUSOL HC CREAM 30GM TOP PRN (13:30)
[2018-11-09] MEDS ORDERED: OXYTOCIN INJ 10 UNITS/ML VIAL (J2590) IM ONE (13:30)
[2018-11-09] MEDS ORDERED: OXYTOCIN DRIP 30 UNITS in APPROPRIATE DILUENT 1 EA IV SCH (13:30)
[2018-11-09] MEDS ORDERED: RHOGAM 300 MCG (1500 IU) INJ (J2790) IM SCH (13:30)
[2018-11-09] MEDS ORDERED: IBUPROFEN 600 MG TAB PO PRN (13:30)
[2018-11-09] MEDS ORDERED: LIDOCAINE 1% MDV 20ML VIAL INFIL ONE (13:30)
[2018-11-09] MEDS ORDERED: MEASLES,MUMPS,RUBELLA VACCINE INJ (MMR-II) (90707) SC SCH (13:30)
[2018-11-09] MEDS: METHYLERGONOVINE MALEATE 0.2 MG TAB PO SCH ×2 (13:47→19:44)
--- NOTE | 2018-11-09 13:57 | DNPDOC ---
[facility] Delivery Note Delivery Note DATE OF DELIVERY: november 09, 2018 PREDELIVERY DIAGNOSIS: 40-2/7 weeks' gestation and labor. POST DELIVERY DIAGNOSIS: Delivered. PROCEDURE: Spontaneous vaginal delivery. PROVIDER: Richelle Oneil CNM ANESTHESIA: None. ESTIMATED BLOOD LOSS: 500 mL. FINDINGS: 8 pound 2 ounce, 3680gm male , Score 9/9, tight nuchal cord times 2. DELIVERY SUMMARY: Patient is a 27-year-old 2 now para 2-0-0-2 who was admitted to labor and delivery for active labor. Noted to be 7cm upon arrival. Rapid progress. AROM large amount clear fluid 1238. Viable male child delivered JULIETA through tight double nuchal cord @ 1245. Spontaneous respirations, transitioned on maternal abdomen. Cord doubly clamped and cut by grandmother under my direction once pulsations ceased. Apgars 9/9. Placenta fontaine, intact with 3v cord @ 1252. Fundus firmed with massage and IM pitocin bolus. EBL 500ml. Cervix, vagina and perineum inspected. Small 1st degree outlet laceration and R labial laceration noted. Both infiltrated with lidocaine 1% and reapproximated in the usual fashion with 3-0 vicryl rapide. Sponge, sharp and instrument count correct. Richelle Oneil CNM Nov 09, 2018 13:57
--- NOTE | 2018-11-09 14:05 | HPEPDOC ---
Obstetrical History & Physical General Date of Admission Nov 09, 2018 at 12:22 History of Present Illness Chief Complaint: Contractions, term Information Provided By: Patient Age: 27 : 2 Term: 1 Pre-term: 0 Abortions: 0 Livin Care Care: Good Care Dating Final EDC: Nov 07, 2018 Final EDC by: LMP EGA at Admission: 40 (+2) Antepartum Course Height (inches): 63 Pre- weight (lbs.): 190 Admission Weight (lbs.): 186 Past Medical History Past Obstetrical History : Past Obstetrical History: Primgravida (2013) Type of Delivery: Spontaneous Vaginal Del. Sex of : Male (7#13) Complications: No CLINICAL MEDICAL TRANSCRIPTIONIST History: No pertinent history Past Medical History Surgical History: Gallbladder, Other (elbow) Family History Significant Family History: Asthma, Hypertension, Other (thyroid) Social History Marital Status: Single (family supportive) Psychosocial History: Anxiety, Depression * Smoker: non-smoker Alcohol: Denies Drugs: denies Imunizations Tdap status: current Allergies Coded Allergies: No Known Allergies (Unverified , 08/19/17) Medications Scheduled No.137/Iron/Folic Acd ( Vitamin Tablet) 1 Each Tablet, 1 TAB PO DAILY Scheduled PRN Calcium Carbonate (Tums) 300 Mg Tab.chew, 2 TAB PO PRN PRN for HEARTBURN Physical Examination Physical Examination GENERAL: Alert and oriented times three. Appears uncomfortable BREAST: . ABDOMEN: Gravid and non-tender to touch. FETUS: Is vertex (VTX) by sterile vaginal examination (SVE), fetus is vertex (VTX) by Kevin. HEART RATE: Regular rate and rhythm. LUNGS: Clear to auscultation (CTA). EXTREMITIES: No edema. No clonus. Deep tendon reflexes (DTRs) + 2. Pertinent Laboratoy Data Blood Type: A+ RBC Antibody Screen: Negative HIV: Negative Hepatitis B: Negative Hepatitis C: Negative Rapid Plasma Reagin: Nonreactive Rubella: Immune Chlamydia/Gonorrhea: Positive (LOYD negative 05/12/18) Group B Streptococcus: Negative Glucose Tolerance Test: 140 (didn't complete 3hr GTT) Anatomy Ultrasound Ultrasound Date: Jun 12, 2018 Placenta Location: Anterior Normal Anatomy: Yes Placenta Previa: No Estimated Weight (grams): 304 Other Ultrasounds 03/20/18 SIUP cw 6w6d 1/17/19 SIUP cw 7w0d 07/23/18 f/u spine suboptimal, 833cm, 71% 09/12/18 f/u limited spine. 2021gm, 57% 10/29/18 negative renal scan Steroid Therapy Steroid Therapy: No Vaginal Examination Dilation: 7 cm Effacement: 100% Station: -2 Cervical Consistency: Medium Cervical Position: Middle Presentation: Cephalic presentation Assessment Heart Rate (FHR): 135 Variability: Moderate Accelerations: Positive Decelerations: None Tocometer Contractions: Yes Frequency: regular Strength: palpated as strong Assessment/Plan Assessment Mahin is a 27-year-old (G)2 para (P)1-0-0-1 at 40+2 weeks by 6-week ultrasound. Presents to Labor and Delivery (L&D) in active labor. She reports irregular UC through the night that increased and became regular this am, 0700. Denies LOF. Reports bloody show. She is very uncomfortable, breathing with UC. Plan Admit and orient. [place] and consent. Diet: clear liquids. Group B Streptococcus (GBS) negative. Labs and intravenous (IV) per unit protocol. Counseled on Pitocin and induction of labor (IOL). Lactated Ringers (LR): Bolus 500 mL, then at 15 mL/hr. Anticipate imminent normal spontaneous delivery (). C-S as appropriate. Richelle Oneil CNM Nov 09, 2018 13:32
[2018-11-09] MEDS: ACETAMINOPHEN 500 MG TAB PO PRN ×2 (14:42→21:57)
[2018-11-09 16:08] LABS: HEMOGLOBIN 9.2 g/dl (12.0-15.5); MEAN CORPUSCULAR HEMOGLOBIN 29.4 pg (27.0-33.0); MEAN CORPUSCULAR HGB CONC 32.9 g/dl (32.0-36.5); MEAN CORPUSCULAR VOLUME 89.5 fl (80.0-96.0); PLATELET COUNT, AUTOMATED 325 10^3/uL (150-450); RED BLOOD COUNT 3.13 10^6/uL (4.00-5.40); WHITE BLOOD COUNT 24.7 10^3/uL (4.0-10.0)
[2018-11-09] MEDS: IBUPROFEN 800 MG TAB PO PRN (19:45)
[2018-11-10] MEDS: METHYLERGONOVINE MALEATE 0.2 MG TAB PO SCH ×2 (01:52→08:21)
[2018-11-10] MEDS: IBUPROFEN 800 MG TAB PO PRN (04:02)
[2018-11-10 06:00] VITALS: BP 102/57
[2018-11-10] MEDS: ACETAMINOPHEN 500 MG TAB PO PRN (06:19)
[2018-11-10] MEDS ORDERED: PRENATAL VITAMINS CHEWABLE TABLET PO SCH (09:00)
[2018-11-10] MEDS ORDERED: METHYLERGONOVINE MALEATE 0.2 MG TAB PO PRN (13:45)
== END 2018-11-10 14:20 | disposition home or self-care (01) | DRG 560 ==
LOC: M LDO 12:08 → M LDI 12:22 → M OBS 15:46
PROVIDERS: ADMIT Advanced Practice Midwife; ATTEND Advanced Practice Midwife
PROC: 10E0XZZ Delivery of Products of Conception, External Approach (ICD-10-PCS; principal; 2018-11-09)
PROC: 10907ZC Drainage of Amniotic Fluid, Therapeutic from Products of Conception, Via Natural or Artificial Opening (ICD-10-PCS; 2018-11-09)
PROC: 0HQ9XZZ Repair Perineum Skin, External Approach (ICD-10-PCS; 2018-11-09)
DX: O48.0 Post-term pregnancy (principal); Z3A.40 40 weeks gestation of pregnancy; Z37.0 Single live birth; O69.1XX0 Labor and delivery complicated by cord around neck, with compression, not applicable or unspecified; O70.0 First degree perineal laceration during delivery

== ENCOUNTER → 2018-12-27 | Outpatient (CLI) | payer OTHER ==
--- NOTE | 2018-12-28 13:54 | REP ---
Clinical: Irregular menstrual cycles . Technique: Transabdominal pelvic ultrasound followed by transvaginal examination for better evaluation of the endometrium and adnexa with color Doppler evaluation of the ovaries. Findings: Bladder is unremarkable and measures 9.5 x 5.4 x 3.5 cm . Normal anteverted uterus measures 8.5 x 4.5 x 7.4 cm . The endometrial complex measures 13 mm thickness. No discrete uterine or endometrial abnormalities are appreciated. Bilateral ovaries are normal in appearance and vascularity without evidence for torsion. Right ovary measures 3.1 x 1.8 x 2.2 cm with 1.7 cm physiologic cyst / follicle ; R I = 0.60 . Left ovary measures 2.2 x 1.3 x 2.4 cm ; R I = 0.48 . Trace pelvic free fluid likely physiologic . Impression: 1. Normal uterus. 2. 1.7 cm right ovarian cyst versus follicle. Electronically Signed by Rogelio Haley MD 12/28/2018 01:46 P
== END ==
LOC: M RAD 17:31
PROVIDERS: ATTEND Advanced Practice Midwife
DX: N92.6 Irregular menstruation, unspecified (principal); N83.201 Unspecified ovarian cyst, right side

== ENCOUNTER → 2019-01-09 | Outpatient (REF) | payer OTHER ==
[2019-01-09 20:31] LABS: CHLAMYDIA DNA AMPLIFICATION NEGATIVE (NEGATIVE); GC DNA AMPLIFICATION NEGATIVE (NEGATIVE)
== END ==
LOC: M LAB REF 16:55
PROVIDERS: ATTEND Advanced Practice Midwife
DX: Z11.3 Encounter for screening for infections with a predominantly sexual mode of transmission (principal)

== ENCOUNTER → 2019-05-01 | Outpatient (REF) | payer OTHER ==
[2019-05-01 19:38] LABS: CHLAMYDIA DNA AMPLIFICATION NEGATIVE (NEGATIVE); GC DNA AMPLIFICATION NEGATIVE (NEGATIVE)
== END ==
LOC: M SFHCWAGY 17:47
PROVIDERS: ATTEND Advanced Practice Midwife
DX: Z01.419 Encounter for gynecological examination (general) (routine) without abnormal findings (principal); Z11.3 Encounter for screening for infections with a predominantly sexual mode of transmission

== ENCOUNTER 2020-02-07 09:51 | Emergency (ER) | payer OTHER ==
[~2020-02-07] VITALS: Ht 160 cm; Wt 82.0 kg
[2020-02-07 11:08] LABS: BASO # 0.1 10^3/uL (0.0-0.2); BASO % 0.6 % (0.0-1.0); EOS # 0.1 10^3/uL (0.0-0.5); EOS % 1.2 % (0.0-3.0); HEMATOCRIT 32.6 % (36.0-47.0); HEMOGLOBIN 9.7 g/dl (12.0-15.5); LYMPH # 2.3 10^3/uL (1.5-5.0); MEAN CORPUSCULAR HEMOGLOBIN 23.4 pg (27.0-33.0); MEAN CORPUSCULAR HGB CONC 29.8 g/dl (32.0-36.5); MEAN CORPUSCULAR VOLUME 78.7 fl (80.0-96.0); MONO # 0.8 10^3/uL (0.0-0.8); MONO % 8.4 % (0.0-5.0); NEUTROPHILS # 6.2 10^3/uL (1.5-8.5); NEUTROPHILS % 65.3 % (36.0-66.0); PLATELET COUNT, AUTOMATED 389 10^3/uL (150-450); RED BLOOD COUNT 4.14 10^6/uL (4.00-5.40); WHITE BLOOD COUNT 9.5 10^3/uL (4.0-10.0)
[2020-02-07 11:31] LABS: ALT/SGPT 15 U/L (12-78); BILIRUBIN,DIRECT < 0.1 MG/DL (0.0-0.2); BILIRUBIN,TOTAL 0.2 MG/DL (0.2-1.0); BLOOD UREA NITROGEN 13 MG/DL (7-18); CALCIUM LEVEL 9.1 MG/DL (8.5-10.1); CARBON DIOXIDE LEVEL 24 MEQ/L (21-32); CHLORIDE LEVEL 109 MEQ/L (98-107); CREATININE FOR GFR 0.64 MG/DL (0.55-1.30); GLOMERULAR FILTRATION RATE > 60.0 (>60); GLUCOSE, FASTING 100 MG/DL (70-100); LIPASE 74 U/L (73-393); POTASSIUM SERUM 4.8 MEQ/L (3.5-5.1); SODIUM LEVEL 138 MEQ/L (136-145); TOTAL PROTEIN 7.4 GM/DL (6.4-8.2)
[2020-02-07 11:36] LABS: HCG, SERUM QUALITATIVE NEGATIVE (NEGATIVE)
[2020-02-07 11:48] VITALS: BP 118/70
[2020-02-07] MEDS ORDERED: METAL LOCK LOOP XX ONE (12:26)
[2020-02-07] MEDS ORDERED: ACETAMINOPHEN 500 MG TAB PO ONE (12:30)
[2020-02-07 13:54] LABS: CHLAMYDIA DNA AMPLIFICATION NEGATIVE (NEGATIVE); GC DNA AMPLIFICATION NEGATIVE (NEGATIVE)
[2020-02-07] MEDS ORDERED: FLAG500T PO (14:43)
[2020-02-07] MEDS ORDERED: MACR100C43 PO (14:43)
== END 2020-02-07 14:51 | disposition home or self-care (01) ==
LOC: M ED 09:51
DX: N76.0 Acute vaginitis (principal); R10.2 Pelvic and perineal pain; Z87.442 Personal history of urinary calculi; Z87.440 Personal history of urinary (tract) infections; Z86.19 Personal history of other infectious and parasitic diseases; F17.200 Nicotine dependence, unspecified, uncomplicated

== ENCOUNTER 2020-09-29 13:45 | Emergency (ER) | payer OTHER ==
[~2020-09-29] VITALS: Ht 160 cm; Wt 88.6 kg
[~2020-09-29 13:45] MED LIST changes: +FLAG500T PO; +MACR100C43 PO
[2020-09-29 18:22] VITALS: BP 128/62
== END 2020-09-29 18:23 | disposition home or self-care (01) ==
LOC: M ED 13:45
DX: S93.602A Unspecified sprain of left foot, initial encounter (principal); X58.XXXA Exposure to other specified factors, initial encounter; Y92.018 Other place in single-family (private) house as the place of occurrence of the external cause; D58.0 Hereditary spherocytosis; F41.9 Anxiety disorder, unspecified; F17.210 Nicotine dependence, cigarettes, uncomplicated

== ENCOUNTER → 2022-10-20 | Outpatient (CLI) | payer OTHER | LOC: M SOG 08:53 | PROVIDERS: ATTEND Physician Assistant | DX: M79.645 Pain in left finger(s) (principal) ==